=== PATIENT | male | born 1945 | race Caucasian/White ===

== ENCOUNTER 2017-01-15 13:53 | Emergency (ER) | payer MEDICARE, OTHER ==
[~2017-01-15] VITALS: Wt 90.0 kg
[~2017-01-15 13:53] MED LIST: AMLO-145 PO; ATEN100T PO; BENA40TA41 PO; GLIM4TAB PO; METF500T4 PO; ZOC10 PO
[2017-01-15] MEDS ORDERED: SOD CHLORIDE 0.9% 1,000 ML IV STA (14:00)
[2017-01-15 17:03] VITALS: BP 171/80; PULSE 70; RESP 19; TEMP 98.6
--- NOTE | 2017-01-15 17:05 | ERD ---
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 no pain. HPI 71-year-old male who presents the emergency room with altered mental status after accidentally ingesting a marijuana edible. The patient is describing altered sensorium. He states that he feels "high ". The patient accidentally ate a brownie in the refrigerator. He denies any headache chest pain or shortness of breath no fevers or chills. The patient's blood pressure is elevated but he is anxious. ROS All systems reviewed and are negative except as per history of present illness. Medications Home Meds Reported Medications Simvastatin (Simvastatin) 10 Mg Tablet, 10 MG PO DAILY 12/03/11 Benazepril Hcl* (Benazepril Hcl*) 40 Mg Tablet, 40 MG PO DAILY 12/03/11 Metformin* (Glucophage*) 500 Mg Tab, 500 MG PO BID 10/15/11 Discontinued Reported Medications Amlodipine Besylate* (Amlodipine Besylate*) 5 Mg Tablet, 5 MG PO DAILY 12/03/11 Atenolol* (Atenolol*) 100 Mg Tablet, 100 MG PO DAILY 12/03/11 Glimepiride* (Glimepiride*) 4 Mg Tablet, 4 MG PO DAILY 10/15/11 Allergies Allergies: Coded Allergies: No Known Allergy (Unverified , 01/15/17) PMhx/Soc History of Surgery: Yes (LEFT EYE CATARACT) Anesthesia Reaction: No Hx Neurological Disorder: No Hx Respiratory Disorders: No Hx Cardiac Disorders: Yes (HTN, HIGH CHOLESTEROL) Hx Psychiatric Problems: No Hx Miscellaneous Medical Probl: No Hx Alcohol Use: No Hx Substance Use: No Hx Tobacco Use: No Smoking Status: Never smoker Physical Exam Vitals Vital Signs Date Time Temp Pulse Resp B/P Pulse Ox O2 Delivery O2 Flow Rate FiO2 01/15/17 14:10 98.8 56 20 200/104 98 Physical Exam General: Appears intoxicated Head: Normocephalic, atraumatic. Eyes: Pupils equally reactive, EOM intact ENT: Moist mucous membranes Neck: Supple, no lymphadenopathy Respiratory: Lungs clear bilaterally, no distress Cardiovascular: RRR, no murmurs, rubs, or gallops Abdominal: Soft, non-tender, non-distended, no peritoneal signs : Deferred MSK: No edema, no unilateral swelling, 5/5 strength Neurologic: Alert and oriented however appears intoxicated, moving all extremities, normal speech, no focal weakness, no cerebellar signs Skin: No rash Psych: Normal mood Results 24 hrs Current Medications Medications (Trade) Dose Ordered Sig/Rocco Route PRN Reason Start Time Stop Time Status Last Admin Dose Admin Sodium Chloride (NS) 1,000 ml @ 1,000 mls/hr Q1H STAT IV 01/15/17 14:00 01/15/17 14:59 DC Procedures/MDM MEDICAL DECISION MAKING: Patient's blood pressure was elevated (>120/80) but appears stable without evidence of hypertensive emergency or urgency. The patient was counseled about the risks of hypertension and urged to pursue outpatient monitoring and therapy within a week with their primary care physician. The patient has signs and symptoms very consistent with acute marijuana intoxication. He has no evidence of stroke no alternative signs or symptoms concerning for infectious etiology. The patient will benefit from close observation and monitoring for metabolization. ER COURSE: The patient continues to be well during ER course and observation. He has metabolize appropriately. While he still has some mild effects of the marijuana he has no significant intoxication his blood pressure is improved and the patient has a sober ride home. The patient is safe for discharge. I kept the patient and/or family informed of laboratory and diagnostic imaging results throughout the emergency room course. DISPOSITION PLAN: We discussed follow up with the patient's primary care doctor within 24 to 48 hours as needed. We also discussed return to the emergency room for worsening symptoms or worsening condition. Discharge Medications: [] Departure Diagnosis: Primary Impression: Marijuana intoxication Complication of substance-induced condition: uncomplicated Qualified Code: F12.920 - Marijuana intoxication, uncomplicated Condition: Stable Patient Instructions: Overdose, Accidental (Adult) Referrals: COMMUNITY CLINICS YOU HAVE RECEIVED A MEDICAL SCREENING EXAM AND THE RESULTS INDICATE THAT YOU DO NOT HAVE A CONDITION THAT REQUIRES URGENT TREATMENT IN THE EMERGENCY DEPARTMENT. FURTHER EVALUATION AND TREATMENT OF YOUR CONDITION CAN WAIT UNTIL YOU ARE SEEN IN YOUR DOCTORS OFFICE WITHIN THE NEXT 1-2 DAYS. IT IS YOUR RESPONSIBILITY TO MAKE AN APPOINTMENT FOR FOLOW-UP CARE. IF YOU HAVE A PRIMARY DOCTOR --you should call your primary doctor and schedule an appointment IF YOU DO NOT HAVE A PRIMARY DOCTOR YOU CAN CALL OUR PHYSICIAN REFERRAL HOTLINE AT IF YOU CAN NOT AFFORD TO SEE A PHYSICIAN YOU CAN CHOSE FROM THE FOLLOWING [facility] [address] [facility] [address] [place] [facility] [address] [facility] [address] [facility] [address] [facility]. [address] [facility] [facility] YOU HAVE RECEIVED A MEDICAL SCREENING EXAM AND THE RESULTS INDICATE THAT YOU DO NOT HAVE A CONDITION THAT REQUIRES URGENT TREATMENT IN THE EMERGENCY DEPARTMENT. FURTHER EVALUATION AND TREATMENT OF YOUR CONDITION CAN WAIT UNTIL YOU ARE SEEN IN YOUR DOCTORS OFFICE WITHIN THE NEXT 1-2 DAYS. IT IS YOUR RESPONSIBILITY TO MAKE AN APPOINTMENT FOR FOLOW-UP CARE. IF YOU HAVE A PRIMARY DOCTOR --you should call your primary doctor and schedule and appointment IF YOU DO NOT HAVE A PRIMARY DOCTOR YOU CAN CALL OUR PHYSICIAN REFERRAL HOTLINE AT . IF YOU CAN NOT AFFORD TO SEE A PHYSICIAN YOU CAN CHOSE FROM THE FOLLOWING [facility] INSTITUTIONS: [facility] [address] [place] [address] [facility] [address] [place] [address] [facility] [address] [place] [address] Additional Instructions: Call your primary care doctor TOMORROW for an appointment during the next 1 WEEK.Tell the litigation legal secretary that you were referred from this facility.See the doctor sooner or return here if your condition worsens before your appointment time. DAVID KIM MD Jan 15, 2017 17:05
== END 2017-01-15 17:28 | disposition home or self-care (01) ==
LOC: E/R 13:53
DX: F12.920 Cannabis use, unspecified with intoxication, uncomplicated (principal); I10 Essential (primary) hypertension; E11.9 Type 2 diabetes mellitus without complications; Z79.84 Long term (current) use of oral hypoglycemic drugs
CPT/HCPCS: 99283; J7030

== ENCOUNTER 2017-01-29 21:09 | Emergency (ER) | payer MEDICARE, OTHER ==
[~2017-01-29] VITALS: Ht 167.6 cm; Wt 85.3 kg
[~2017-01-29 21:09] MED LIST changes: -AMLO-145 PO; -ATEN100T PO; -GLIM4TAB PO
[2017-01-29 21:28] VITALS: Ht 167.6 cm; Wt 85.3 kg
[2017-01-29 23:23] LABS: ADD SCAN DIFF NO
[2017-01-29 23:28] LABS: ABNORMAL IP MESSAGE 1; BASOPHIL # 0.1 10^3/ul (0.0-0.1); BASOPHILS % 0.5 % (0.0-2.0); EOSINOPHILS # 0.2 10^3/ul (0.0-0.5); HEMATOCRIT 44.6 % (42.0-52.0); HEMOGLOBIN 15.6 g/dl (14.0-18.0); LYMPHOCYTES # 2.5 10^3/ul (0.8-2.9); LYMPHOCYTES % 25.8 % (15.0-51.0); MEAN CORPUSCULAR HEMOGLOBIN 31.6 pg (29.0-33.0); MEAN CORPUSCULAR VOLUME 90.5 fl (82.0-101.0); MONOCYTE # 0.6 10^3/ul (0.3-0.9); MONOCYTES % 6.2 % (0.0-11.0); NEUTROPHIL # 6.4 10^3/ul (1.6-7.5); NEUTROPHILS % 65.3 % (39.0-77.0); PLATELET COUNT 94 10^3/UL (140-415); RED BLOOD COUNT 4.93 10^6/ul (4.70-6.10); RED CELL DISTRIBUTION WIDTH 12.1 % (11.5-14.5); WHITE BLOOD COUNT 9.9 10^3/ul (4.8-10.8)
[2017-01-29] MEDS ORDERED: LABETALOL HCL 20MG INJ IV ONE (23:30)
[2017-01-29 23:37] LABS: PROTIME 13.2 Sec (12.2-14.2)
[2017-01-29 23:38] LABS: PARTIAL THROMBOPLASTIN TIME 36.5 Sec (25.0-35.0)
--- NOTE | 2017-01-29 23:48 | RADRPT ---
PROCEDURE: XR Chest. CLINICAL INDICATION: Chest pain TECHNIQUE: Single frontal view of the chest was obtained COMPARISON: None FINDINGS: Cardiomegaly. Mild pulmonary vascular congestion. Likely degree of centrolobular emphysema. There is no pleural effusion or pneumothorax. IMPRESSION: Cardiomegaly and mild pulmonary vascular congestion. RPTAT: [facility] Physician Deshawn Date Time Electronically viewed and signed by Amanda Gutiérrez Physician on 01/29/2017 23:48 RS/
[2017-01-29 23:55] LABS: POTASSIUM 3.7 mmol/L (3.5-5.1)
[2017-01-29 23:58] LABS: CREATININE 0.98 mg/dl (0.61-1.24)
[2017-01-29 23:59] LABS: CALCIUM 9.6 mg/dl (8.4-10.2)
[2017-01-30] MEDS ORDERED: AMLODIPINE 10 MG TAB PO ONE
[2017-01-30 00:31] LABS: TROPONIN-I 0.012 ng/ml (0.00-0.12)
[2017-01-30] MEDS ORDERED: AMLO-147 PO (01:06)
[2017-01-30 01:23] VITALS: BP 166/91; PULSE 68; RESP 18; TEMP 98
--- NOTE | 2017-01-30 01:23 | ERD ---
ER Documentation Chief Complaint Date/Time DATE: 01/30/17 TIME: 01:08 Chief Complaint hypertemsion, dizzness [id number] HPI This 71-year-old male presents feeling dizzy, has a mild generalized headache, and feels shaky. Denies chest pain, does have mild shortness of breath. States that he take his blood pressure home and was very high in spite of taking his normal medications which include metoprolol 100 mg twice a day and benazepril 40 daily. He has not missed any doses. He started to feel shaky midway through the day states that this happens sometimes when his blood pressure becomes for a high. He does have appointment with his primary care doctor tomorrow morning. ROS All systems reviewed and are negative except as per history of present illness. Medications Home Meds Active Scripts Amlodipine Besylate* (Amlodipine Besylate*) 10 Mg Tablet, 10 MG PO DAILY, #30 TAB Prov:MARITZA CURRAN DO 01/30/17 Reported Medications Simvastatin (Simvastatin) 10 Mg Tablet, 10 MG PO DAILY 12/03/11 Benazepril Hcl* (Benazepril Hcl*) 40 Mg Tablet, 40 MG PO DAILY 12/03/11 Metformin* (Glucophage*) 500 Mg Tab, 500 MG PO BID 10/15/11 Allergies Allergies: Coded Allergies: No Known Allergy (Unverified , 01/15/17) PMhx/Soc History of Surgery: Yes (LEFT EYE CATARACT) Anesthesia Reaction: No Hx Neurological Disorder: No Hx Respiratory Disorders: No Hx Cardiac Disorders: Yes (HTN, HIGH CHOLESTEROL) Hx Psychiatric Problems: No Hx Miscellaneous Medical Probl: No Hx Alcohol Use: No Hx Substance Use: No Hx Tobacco Use: No Smoking Status: Unknown if ever smoked Physical Exam Vitals Vital Signs Date Time Temp Pulse Resp B/P Pulse Ox O2 Delivery O2 Flow Rate FiO2 01/29/17 23:31 Nasal Cannula 2 01/29/17 21:28 98.2 72 20 235/118 98 Physical Exam Const: [] Head: Atraumatic Eyes: Normal Conjunctiva ENT: Normal External Ears, Nose and Mouth. Neck: Full range of motion..~ No meningismus. Resp: Clear to auscultation bilaterally Cardio: Regular rate and rhythm, no murmurs Abd: Soft, non tender, non distended. Normal bowel sounds Skin: No petechiae or rashes Back: No midline or flank tenderness Ext: No cyanosis, or edema Neur: Awake and alert Psych: Normal Mood and Affect Result Diagram: 01/29/17 2316 01/29/17 2316 Results 24 hrs Laboratory Tests Test 01/29/17 23:16 Activated Partial Thromboplast Time 36.5Sec Anion Gap 17 Basophils # 0.110^3/ul Basophils % 0.5% Blood Urea Nitrogen 18mg/dl Calcium Level 9.6mg/dl Carbon Dioxide Level 28mmol/L Chloride Level 100mmol/L Creatinine 0.98mg/dl Eosinophils # 0.210^3/ul Eosinophils % 2.0% Glucose Level 108mg/dl Hematocrit 44.6% Hemoglobin 15.6g/dl INR International Normalized Ratio 1.00 Lymphocytes # 2.510^3/ul Lymphocytes % 25.8% Mean Corpuscular Hemoglobin 31.6pg Mean Corpuscular Hemoglobin Concent 35.0g/dl Mean Corpuscular Volume 90.5fl Mean Platelet Volume 12.0fl Monocytes # 0.610^3/ul Monocytes % 6.2% Neutrophils # 6.410^3/ul Neutrophils % 65.3% Nucleated Red Blood Cells # 0.010^3/ul Nucleated Red Blood Cells % 0.0/100WBC Platelet Count 9410^3/UL Potassium Level 3.7mmol/L Prothrombin Time 13.2Sec Prothrombin Time Ratio 1.0 Red Blood Count 4.9310^6/ul Red Cell Distribution Width 12.1% Sodium Level 141mmol/L Troponin I 0.012ng/ml White Blood Count 9.910^3/ul Current Medications Medications (Trade) Dose Ordered Sig/Rocco Route PRN Reason Start Time Stop Time Status Last Admin Dose Admin Labetalol HCl (Labetalol) 20 mg ONCE ONCE IV 01/29/17 23:30 01/29/17 23:31 DC 01/29/17 23:09 Amlodipine Besylate (Norvasc) 10 mg ONCE ONCE PO 01/30/17 00:00 01/30/17 00:01 DC 01/30/17 00:24 Procedures/MDM Hypertensive crisis with headache and 71-year-old male. Unknown reason for out- of-control severe hypertension. Patient was placed on a monitored bed, EKG and laboratories were obtained. All symptoms resolved with treatment with IV labetalol in the emergency room. He is also given amlodipine tab for any rebound of hypertension. He has an appointment today with his doctor. He's been acute this. I am also given a prescription for amlodipine stated to his doctor. Also per his laboratories and had him start keeping a log of his blood pressure is it was dangerously high today. Also suggesting it was Dr. rodriguez in workup for secondary causes of hypertension. EKG interpretation: Normal sinus rhythm rate of 67, normal axis, no ST-T wave changes concerning for acute ischemia. Normal EKG playground monitor interpretation: Normal sinus rhythm without arrhythmia Chest x-ray interpretation: No acute process, C no widening [place] I see no pneumothorax, I see no pulmonary edema, I see no fractures Critical care time 36 minutes: This includes treatment of hypertensive crisis in a patient with extremely high blood pressure, use of Bactrim medication labetalol, multiple visits the patient's bedside to reassess status, chart review, discussion with patient and family,. Is not included any billable procedures.. Departure Diagnosis: Primary Impression: Lightheaded Additional Impressions: Hypertensive crisis Cephalgia Thrombocytopenia Condition: Stable Patient Instructions: Hypertension, Established, Out Of Control Additional Instructions: Llame al doctor LANE y polly syeda DOMENIC PARA DENTRO DE 2-3 BARLOW.Dgale a la secretaria que nosotros le instruimos hacer esta domenic.Avise o llame si orellana condicin se empeora antes de la domenic. Regresa aqui si peor o no mejor. MARITZA CURRAN DO Jan 30, 2017 01:22
== END 2017-01-30 01:23 | disposition home or self-care (01) ==
LOC: E/R 21:09
DX: R42 Dizziness and giddiness (principal); R51 Headache; I16.9 Hypertensive crisis, unspecified; D69.6 Thrombocytopenia, unspecified; I10 Essential (primary) hypertension; E11.9 Type 2 diabetes mellitus without complications; Z79.84 Long term (current) use of oral hypoglycemic drugs
CPT/HCPCS: 36415; 71010; 80048; 84484; 85025; 85610; 85730; 93005; 96374